=== PATIENT | female | born 1985 | race Caucasian/White ===

== ENCOUNTER 2021-04-12 11:32 | Emergency (ER) | payer MEDICAID ==
[~2021-04-12] VITALS: Ht 157.5 cm; Wt 120.9 kg
[2021-04-12] MEDS ORDERED: BACTRIM DS TAB1 EACH PO (16:03)
== END 2021-04-12 16:20 | disposition home or self-care (01) ==
LOC: ED 11:32
DX: N75.1 Abscess of Bartholin's gland (principal)
CPT/HCPCS: 56420; 99282-25

== ENCOUNTER 2024-07-12 18:06 | Emergency (ER) | payer MEDICAID ==
[~2024-07-12] VITALS: Ht 157.5 cm; Wt 141.0 kg
[~2024-07-12 18:06] MED LIST: BACTRIM DS TAB1 EACH PO
[2024-07-12 23:42] LABS: BILIRUBIN, URINE NEGATIVE (negative); BLOOD/HGB, URINE NEGATIVE (Negative); KETONE, URINE NEGATIVE (Negative); LEUK ESTERASE, URINE NEGATIVE (negative); NITRITE, URINE NEGATIVE (negative)
[2024-07-13] MEDS ORDERED: BACTRIM DS TAB1 EACH PO (01:23)
[2024-07-13] MEDS ORDERED: TRIMETHOPRIM/SULFAMETHOXAZOLE 1 EA TAB PO ONE (01:30)
[2024-07-13 01:33] VITALS: BP 157/88
== END 2024-07-13 01:30 | disposition home or self-care (01) ==
LOC: ED 18:06
PROVIDERS: Internal Medicine
DX: N75.0 Cyst of Bartholin's gland (principal)
CPT/HCPCS: 56420; 81003; 84703; 99283-25; A9270